=== PATIENT | male | born 1955 | race Two or more races ===

== ENCOUNTER 2022-05-14 11:38 | Emergency (ER) | payer BC ==
[2022-05-14] MEDS ORDERED: Sodium Chloride 0.9% 1,000 ML IV ONE ×2 (12:02→13:21)
[2022-05-14] MEDS ORDERED: Potassium Chloride 20 MEQ Tab.ER PO ONE (14:19)
== END 2022-05-14 16:05 | disposition home or self-care (01) ==
LOC: FB.ED 11:38
DX: U07.1 COVID-19 (principal); R55 Syncope and collapse; E86.0 Dehydration; N17.8 Other acute kidney failure; E78.00 Pure hypercholesterolemia, unspecified; I10 Essential (primary) hypertension; E11.9 Type 2 diabetes mellitus without complications; Z79.899 Other long term (current) drug therapy; Z79.82 Long term (current) use of aspirin
CPT/HCPCS: 36415; 81001; 84484; 85379; 86140; 93005; 96360; 96361; 99284-25; A9270-GY; J7030